=== PATIENT | female | born 1990 | race Caucasian/White ===

== ENCOUNTER 2018-06-28 15:46 | Emergency (ER) | payer BC, MEDICAID | END 2018-06-28 18:46 | disposition left against medical advice (07) | LOC: ER 15:47 | DX: K08.89 Other specified disorders of teeth and supporting structures (principal); Z53.21 Procedure and treatment not carried out due to patient leaving prior to being seen by health care provider ==

== ENCOUNTER 2018-12-21 18:37 | Emergency (ER) | payer MEDICAID ==
[~2018-12-21] VITALS: Ht 162.6 cm; Wt 69.2 kg
[2018-12-21 18:52] VITALS: BP 115/69
[2018-12-21] MEDS ORDERED: rabies vaccine (PCEC)/PF 2.5 unit kit IM ONE (20:20)
[2018-12-21] MEDS ORDERED: rabies immune globulin/PF 150 unit/ml inj IM ONE (20:20)
[2018-12-21] MEDS ORDERED: TETanus/Pertussis (Acell)/Diphther VAC/PF (Tdap-Adult) 0.5ml syringe IM ONE (20:25)
[2018-12-21] MEDS ORDERED: DOXY100C2 PO (21:26)
== END 2018-12-21 21:54 | disposition home or self-care (01) ==
LOC: ER 18:38
DX: S61.250A Open bite of right index finger without damage to nail, initial encounter (principal); Z88.0 Allergy status to penicillin; Z88.1 Allergy status to other antibiotic agents; Z79.2 Long term (current) use of antibiotics; W55.01XA Bitten by cat, initial encounter; Y93.89 Activity, other specified; Y92.89 Other specified places as the place of occurrence of the external cause; Y99.8 Other external cause status
CPT/HCPCS: 90471; 90472; 90675; 90715; 96372; 99283

== ENCOUNTER 2020-08-16 19:48 | Emergency (ER) | payer MEDICAID ==
[~2020-08-16] VITALS: Ht 162.6 cm; Wt 69.7 kg
[2020-08-16 19:58] VITALS: BP 120/72
[2020-08-16] MEDS ORDERED: clindamycin 150mg capsule PO ONE (21:40)
[2020-08-16] MEDS ORDERED: CLIN300C17 PO (21:41)
== END 2020-08-16 21:59 | disposition home or self-care (01) ==
LOC: ER 19:48
DX: K11.21 Acute sialoadenitis (principal); Z88.0 Allergy status to penicillin; Z88.1 Allergy status to other antibiotic agents; Z79.899 Other long term (current) drug therapy
CPT/HCPCS: 99283

== ENCOUNTER 2023-09-24 22:44 | Emergency (ER) | payer MEDICAID ==
[~2023-09-24] VITALS: Ht 160 cm; Wt 65.9 kg
[~2023-09-24 22:44] MED LIST: CLIN300C17 PO
[2023-09-25] MEDS: LIDOcaine 1% 30ml preserv. free vial IJ ONE (02:42)
[2023-09-25] MEDS: TETanus/Pertussis (Acell)/Diphther VAC/PF (Tdap-Adult) 0.5ml syringe IMVAC ONE (02:42)
[2023-09-25 03:59] VITALS: BP 120/64; PULSE 70; RESP 16; TEMP 98.4; O2SAT 98
== END 2023-09-25 04:01 | disposition home or self-care (01) ==
LOC: ER 22:44
DX: S61.217A Laceration without foreign body of left little finger without damage to nail, initial encounter (principal); Z88.0 Allergy status to penicillin; Z88.1 Allergy status to other antibiotic agents; Z79.899 Other long term (current) drug therapy; W45.8XXA Other foreign body or object entering through skin, initial encounter; Y93.89 Activity, other specified; Y92.89 Other specified places as the place of occurrence of the external cause; Y99.8 Other external cause status
CPT/HCPCS: 12031; 12041; 90471; 90715; 99284